=== PATIENT | male | born 1995 ===

== ENCOUNTER 2021-04-13 14:27 | Outpatient (REF) | payer OTHER, SELFPAY ==
[2021-04-15 10:43] LABS: Varicella IgG Antibody Positive (See Note)
== END 2021-04-13 14:28 | disposition home or self-care (01) ==
LOC: NCHCN 14:27
PROVIDERS: Visit Provider Nurse Practitioner Community Health
DX: Z13.89 Encounter for screening for other disorder (principal)
CPT/HCPCS: 86787